=== PATIENT | male | born 1980 | race Caucasian/White ===

== ENCOUNTER 2017-08-27 12:18 | Emergency (ER) | payer OTHER | END 2017-08-27 13:35 | disposition home or self-care (01) | LOC: M ED 12:18 | DX: S01.01XA Laceration without foreign body of scalp, initial encounter (principal); W20.8XXA Other cause of strike by thrown, projected or falling object, initial encounter; Y92.009 Unspecified place in unspecified non-institutional (private) residence as the place of occurrence of the external cause | CPT/HCPCS: 12001 ==

== ENCOUNTER → 2020-05-17 | Outpatient (CLI) | payer SELFPAY | LOC: M LABSMTC 10:47 | PROVIDERS: ATTEND Pediatrics | DX: Z20.822 Contact with and (suspected) exposure to COVID-19 (principal) ==

== ENCOUNTER → 2020-05-28 | Outpatient (CLI) | payer SELFPAY | LOC: M LABSMTC 11:55 | PROVIDERS: ATTEND Pediatrics | DX: Z20.822 Contact with and (suspected) exposure to COVID-19 (principal) ==